=== PATIENT | female | born 1985 | race Two or more races ===

== ENCOUNTER 2023-03-13 19:57 | Emergency (ER) | payer MEDICAID, OTHER ==
[~2023-03-13] VITALS: Ht 165.1 cm; Wt 102.2 kg
[2023-03-13 23:45] LABS: Urine Bacteria MOD /hpf (None Seen); Urine Blood Negative /uL (Negative); Urine Clarity Clear (Clear); Urine Color Colorless (Yellow); Urine Hyaline Cast FEW /lpf (0 - 2); Urine Mucus FEW (None Seen); Urine Protein, UAD Negative (Negative); Urine Specific Gravity 1.009 (1.001-1.035); Urine Urobilinogen Normal (Negative); Urine WBC 6 /hpf (0 - 5); Urine pH 5.5 (5.0-8.0)
[2023-03-14 01:28] VITALS: BP 106/69; PULSE 89; RESP 16; TEMP 98.1; O2SAT 98
[2023-03-14] MEDS ORDERED: ACETAMINOPHEN 325 MG TAB PO ONE (01:30)
== END 2023-03-14 01:33 | disposition home or self-care (01) ==
LOC: ER 19:57
DX: O26.891 Other specified pregnancy related conditions, first trimester (principal); R10.2 Pelvic and perineal pain; S53.401A Unspecified sprain of right elbow, initial encounter; S76.011A Strain of muscle, fascia and tendon of right hip, initial encounter; N83.201 Unspecified ovarian cyst, right side; Z3A.09 9 weeks gestation of pregnancy; W18.09XA Striking against other object with subsequent fall, initial encounter; Y93.89 Activity, other specified; Y92.89 Other specified places as the place of occurrence of the external cause; Y99.8 Other external cause status
CPT/HCPCS: 36415; 76801; 81001; 84702

== ENCOUNTER 2024-01-12 18:59 | Emergency (ER) | payer MEDICAID, OTHER ==
[~2024-01-12] VITALS: Ht 165.1 cm; Wt 103.4 kg
[2024-01-12] MEDS: MORPHINE SULFATE INJ 2 MG/ml SYRG IV ONE (21:00)
[2024-01-12 21:02] LABS: Basophils # (auto) 0 10 ^3/uL (0-0.2); Basophils % (auto) 0.2 % (0.0-2.0); Eosinophils # (auto) 0.1 10 ^3/uL (0-0.8); Hematocrit 47.1 % (36.0-46.0); Hemoglobin 15.8 g/dL (12.2-16.2); Lymphocytes # (auto) 0.7 10 ^3/uL (0.4-5.4); Lymphocytes % (auto) 7.1 % (10.0-50.0); Mean Corpuscular Hgb Conc. 33.6 g/dL (32.0-36.0); Mean Corpuscular Volume 92.5 fL (80.0-100.0); Monocytes # (auto) 0.7 10 ^3/uL (0-1.3); Monocytes % (auto) 7.2 % (0.0-12.0); Neutrophils # (auto) 8.8 10 ^3/uL (1.6-8.6); Neutrophils % (auto) 84.5 % (37.0-80.0); Nucleated Red Blood Cells % 0.1 %; Red Cell Distribution Width 14.9 % (11.8-14.3); White Blood Cell 10.4 10^3/uL (4.4-10.8)
[2024-01-12 21:13] LABS: Urine Bacteria FEW /hpf (None Seen); Urine Blood TRACE /uL (Negative); Urine Clarity Turbid (Clear); Urine Color Yellow (Yellow); Urine Hyaline Cast FEW /lpf (0 - 2); Urine Mucus FEW (None Seen); Urine Protein, UAD 1+ (Negative); Urine Specific Gravity 1.027 (1.001-1.035); Urine Urobilinogen Normal (Negative); Urine WBC 4 /hpf (0 - 5)
[2024-01-12 21:30] LABS: Chloride 106 mmol/L (98-107); Potassium 3.4 mmol/L (3.5-5.1); Sodium 133 mmol/L (136-145)
[2024-01-12 21:31] LABS: Anion Gap 9 (5-15); Carbon Dioxide 18 mmol/L (20-30)
[2024-01-12 21:32] LABS: Calcium 9.6 mg/dL (8.5-10.1)
[2024-01-12 21:36] LABS: BUN/Creatinine Ratio 15.4 (10.0-20.0); Blood Urea Nitrogen 12 mg/dL (9-23); Glucose 102 mg/dL (74-106)
[2024-01-12 21:41] LABS: Albumin 5.1 g/dL (3.2-4.8); Bilirubin, Direct 0.2 mg/dL (<0.3); Bilirubin, Total 0.5 mg/dL (0.2-1.0); Total Protein 8.1 g/dL (5.7-8.2)
[2024-01-12] MEDS ORDERED: METR-344 PO (23:09)
[2024-01-12] MEDS ORDERED: AUG875T PO (23:09)
[2024-01-12] MEDS ORDERED: ZOFR4T PO (23:09)
[2024-01-12] MEDS ORDERED: DICY10CA PO (23:09)
[2024-01-12] MEDS ORDERED: LOPE7.5C PO (23:11)
[2024-01-13 00:15] VITALS: BP 103/69; PULSE 80; RESP 13; TEMP 98.3; O2SAT 96
[2024-01-13] MEDS: POTASSIUM CHL 20 Meq TABLET PO ONE (00:40)
[2024-01-13] MEDS: SODIUM CHLORIDE 0.9% 1,000 ML IV ONE (00:41)
[2024-01-13] MEDS: ONDANSETRON HCL 4 MG/2 ML VIAL IV ONE (00:42)
[2024-01-13] MEDS: cefTRIAXone 1GM/50ML D5W 50 ML IV ONE (00:42)
== END 2024-01-13 01:38 | disposition home or self-care (01) ==
LOC: ER 18:59
DX: N39.0 Urinary tract infection, site not specified (principal); R10.33 Periumbilical pain; R11.2 Nausea with vomiting, unspecified; R19.7 Diarrhea, unspecified; Z98.890 Other specified postprocedural states
CPT/HCPCS: 36415; 74176; 80048; 80076; 81001; 81025; 83690; 85025; 96365; 96375; 99285; J0696; J2405

== ENCOUNTER 2024-10-17 09:43 | Observation (INO) | payer OTHER ==
[~2024-10-17 09:43] MED LIST: AUG875T PO; DICY10CA PO; LOPE7.5C PO; METR-344 PO; ZOFR4T PO
--- NOTE | 2024-10-17 10:50 | DVH ---
BIOPHYSICAL PROFILE HISTORY: decreased movement Comparison Study: None TECHNIQUE: Multiple real-time grayscale sonographic images through the gravid uterus of the fetus wi th duplex Doppler color flow and M-mode spectral analysis FINDINGS: BIOPHYSICAL PROFILE: breathing score: 2 movement score: 2 tone score: 2 Quantitative CALI score: 2 (CALI: 14.2 Cm.) Total score: 8 The cervix is closed and measures 3.2 cm. Single live fetus in cephalic presentation. heart rate 136 beats per minute. Posterior placenta without previa or abruption IMPRESSION: Biophysical profile score: 8
--- NOTE | 2024-10-17 23:40 | DVHDS2 ---
Discharge Summary Date of Admission Oct 17, 2024 at 09:50 Date of Discharge: Oct 17, 2024 Admitting Diagnosis 34 weeks decreased movement Brief Hx & Hospital Course: 34 wk decreased movement Condition at Discharge: Good Final Diagnosis/Problems List 34 weeks decreased movement Discharge Disposition: Home Discharge Instruct/Medications Diet: Regular Activity: No Restrictions, As Tolerated Discharge Statement: "Patient was advised to return to the ER or call 911 if any headaches, diz ziness, shortness of breath, chest pain, abdominal pain, bleeding, fevers, or worsening of medical condition. Patient was counseled about treatment plan, medications, possible side effects, patientverbalized understanding. All questions were answered to the best of my ability. This discharge took greater then 30 minutes in planning, reviewing documentation, counseling the patient, and discussing with other team members." DME: Diagnosis: 34 weeks reasuring fetus ASSESSMENT ASSESSMENT Assessment Visit Coding OBGYN Date of Service: Oct 17, 2024 Billing Provider: YAZ BECKER DO RECREATIONAL PROGRAMS DIRECTOR Common Visit Codes: 57334-UNQ/OBS SAME DATE (LOW), 17170-IVD/OBS SAME DATE (MOD), 51607-ERD/OBS SAME DATE (HIGH) RECREATIONAL PROGRAMS DIRECTOR Procedure Codes: 99721-78- NON-STRESS TEST YAZ BECKER DO Oct 17, 2024 23:40
== END 2024-10-17 11:09 | disposition home or self-care (01) ==
LOC: UNDOADMOB 09:43 → LDRP 09:43 → UNDODISOB 11:09
PROVIDERS: ADMIT Obstetrics & Gynecology; ATTEND Obstetrics & Gynecology
DX: O36.8130 Decreased fetal movements, third trimester, not applicable or unspecified (principal); Z98.890 Other specified postprocedural states; Z79.899 Other long term (current) drug therapy; Z3A.34 34 weeks gestation of pregnancy
CPT/HCPCS: 59025; 76819; 81002; 94760; G0378

== ENCOUNTER 2024-11-21 05:26 | Inpatient (IN) | payer OTHER ==
[~2024-11-21] VITALS: Ht 165.1 cm; Wt 113.4 kg
[2024-11-21] MEDS ORDERED: BUTORPHANOL TARTRATE 2 MG/1 ML VIAL IV PRN ×2 (05:45)
[2024-11-21] MEDS ORDERED: LIDOCAINE 2%HCL (LOCAL ANESTH.) INJ 20ML MDV IJ PRN (05:45)
[2024-11-21] MEDS ORDERED: TERBUTALINE SULFATE 1 MG/ML 1ML VIAL SC PRN (05:45)
--- NOTE | 2024-11-21 05:49 | DVHHP2 ---
OB CC & HPI Date Date of Admission: Nov 21, 2024 Patient Identification: : 8 Para: 4 EDC: November 28, 2024 EGA: 39 Chief Complaints: Reason for admission: active labor History of Present Complaints Active labor, moderate contractions Normal complicated by: - AMA (NIPT and AFP neg, ECHO normal) - GBS unknown (results pending) - Morbid obesity, GDM screen negative. OB History OB History Care: Good Care Ultrasounds: No ultrasounds Obstetrical Complications: None Medical Complications: None Allergies: Coded Allergies: NO KNOWN ALLERGIES (Unverified , 03/13/23) Home Meds Active Scripts Loperamide HCl (Imodium A-D) 2 Mg Cap, 2 MG PO Q6HP PRN, #20 CAP Prov:JOSE MANUEL ZARAGOZA MD 01/12/24 Ondansetron Odt 4MG Tab (ZOFRAN PO) 4 Mg Tb, 4 MG PO TID PRN, #15 TAB ODT TAB-DISSOLVE IN MOUTH, THEN SWALLOW Prov:JOSE MANUEL ZARAGOZA MD 01/12/24 Dicyclomine Hcl (BENTYL CAPSULE) 10 Mg Cp, 2 CAP PO Q6HPRN, #30 CAP 3 Refills Prov:JOSE MANUEL ZARAGOZA MD 01/12/24 Metronidazole (Flagyl) 500 Mg Tab, 500 MG PO TID for 10 Days, #30 TAB Prov:JOSE MANUEL ZARAGOZA MD 01/12/24 Amoxicillin & Pot Clavulanate (AUGMENTIN TABLET) 875 Mg Tb, 875 MG PO BID for 10 Days, #20 TAB Prov:JOSE MANUEL ZARAGOZA MD 01/12/24 Current Medications Current Medications Medications (Trade) Dose Ordered Sig/Nanci Route PRN Reason Start Time Stop Time Status Last Admin Lactated Ringer's 1,000 ml @ 125 mls/hr Q8H IV 11/21/24 05:45 UNV Witch Ana (Tucks) 1 pad PRN PRN TOP PERINEAL AREA DISCOMFORT 11/21/24 05:45 UNV Sodium Lauryl Sulfate (Phisoderm) 240 ml PRN PRN TOP PERINEAL AREA DISCOMFORT 11/21/24 05:45 UNV Benzocaine (Dermoplast) 1 applic PRN PRN TOP PERINEAL AREA DISCOMFORT 11/21/24 05:45 UNV Butorphanol Tartrate (Stadol Injection) 1 mg Q4HPRN PRN IV MODERATE PAIN (4-6 PAIN SCALE) 11/21/24 05:45 UNV Butorphanol Tartrate (Stadol Injection) 2 mg Q4HPRN PRN IV SEVERE PAIN (7-10 PAIN SCALE) 11/21/24 05:45 UNV Lidocaine HCl (Xylocaine) 20 ml ONCE PRN IJ PERINEAL AREA DISCOMFORT 11/21/24 05:45 UNV Terbutaline Sulfate (Brethine Inj) 0.25 mg ONCE PRN SC Uterine tachysystole 11/21/24 05:45 UNV Family & Social History Family/Social History Past Family/Social History: Non contributory Blood Type: O+ Rubella: immune RPR/VDRL: Negative GBS Status: Unknown HBsAG: Negative Review of Systems Constitutional: No symptom reported Ears, Nose, & Throat: No symptom reported Eyes: No symptom reported Pulmonary/Respiratory: No symptom reported Cardiovascular: No symptom reported Gastrointestinal: No symptom reported Genitourinary: No symptom reported Musculoskeletal: No symptom reported Skin: No symptom reported Psychiatric: No symptom reported Endocrine: No symptom reported Hemotologic/Lymphatic: No symptom reported OB Admission Exam Physical Exam Vitals: Afeb VS stable HEENT: NCAT Heart: Rhythm Normal Lungs: Clear Abdomen: Gravid Extremities: Normal Reflexes: Normal Cervical Dilatation: 9cm Effacement: 100% Station: -1 Membranes: Intact Heart Rate: 130's Accelerations: Accelerations Present Decelerations: No Decelerations Short Term Variability: Present Apprentice Machinist Outside Variability: Average (6-25) Contractions on Admission: < 5 Minutes Apart Intensity: Moderate OB Plan Plan Admitting Diagnosis: Term IUP 39 wk, Spont Labor AMA Plan: Expectant Management Other Plan: Admit for labor and delivery Anticipated Informed consent obtained Visit Coding OBGYN Date of Service: Nov 21, 2024 Billing Provider: CLARI GARDNER DO DELIVERY MGR Common Visit Codes: 12554-KNGLWDZ INP/OBS CARE (HIGH) CLARI GARDNER DO Nov 21, 2024 05:49
[2024-11-21] MEDS: WITCH HAZEL-GLYCERIN PAD TOP PRN (06:13)
[2024-11-21] MEDS: PHISODERM TOP SOLN 240ML BTL TOP PRN (06:13)
[2024-11-21] MEDS: DERMOPLAST 60ML BOTTLE TOP PRN (06:14)
[2024-11-21 06:22] LABS: Basophils # (auto) 0 10 ^3/uL (0-0.2); Basophils % (auto) 0.2 % (0.0-2.0); Eosinophils # (auto) 0 10 ^3/uL (0-0.8); Eosinophils % (auto) 0.4 % (0.0-7.0); Hematocrit 37.7 % (36.0-46.0); Hemoglobin 12.5 g/dL (12.2-16.2); Lymphocytes # (auto) 1.6 10 ^3/uL (0.4-5.4); Lymphocytes % (auto) 13.8 % (10.0-50.0); Mean Corpuscular Hgb Conc. 33.2 g/dL (32.0-36.0); Mean Corpuscular Volume 90.3 fL (80.0-100.0); Monocytes # (auto) 0.6 10 ^3/uL (0-1.3); Neutrophils # (auto) 9.1 10 ^3/uL (1.6-8.6); Neutrophils % (auto) 80.6 % (37.0-80.0); Nucleated Red Blood Cells % 0.1 %; Platelet Count (auto) 254 10^3/uL (140-450); Red Blood Cells 4.17 10^6/uL (4.0-5.20); Red Cell Distribution Width 14.4 % (11.8-14.3); White Blood Cell 11.2 10^3/uL (4.4-10.8)
[2024-11-21] MEDS: PENICILLIN G POT 5MIL/D5 50ML 50 ML IV ONE (06:24)
[2024-11-21 06:44] LABS: INR 0.91 (0.9-1.15); Partial Thromboplastin Time 27.9 SEC (24.5-34.5); Prothrombin Time 9.7 sec (9.3-11.8)
[2024-11-21 06:48] LABS: Alanine Aminotransferase 11 U/L (7-40); Albumin 3.9 g/dL (3.2-4.8); Anion Gap 11 (5-15); BUN/Creatinine Ratio 17.5 (10.0-20.0); Bilirubin, Total 0.4 mg/dL (0.2-1.0); Blood Urea Nitrogen 10 mg/dL (9-23); Calcium 9.5 mg/dL (8.7-10.4); Carbon Dioxide 22 mmol/L (20-31); Chloride 104 mmol/L (98-107); Glucose 104 mg/dL (74-106); Potassium 3.9 mmol/L (3.5-5.1); Sodium 137 mmol/L (136-145); Total Protein 6.6 g/dL (5.7-8.2)
[2024-11-21 06:50] LABS: Alkaline Phosphatase 151 U/L (46-116); Aspartate Aminotransferase 12 U/L (13-40)
[2024-11-21] MEDS: LACT. RINGERS/OXYTOCIN 20UNITS 500 ML IV ONE ×2 (07:04→09:02)
--- NOTE | 2024-11-21 07:10 | LDN2 ---
Labor and Delivery Note Date 11/21/24 Age 39 8 Para 5 AB 3 EDC 5-5 EGA 39wks Diagnosis labor Vaginal Delivery: VTX Vacuum Assisted: No Placenta: Spontaneous Sex: Male Apgars 8-9 Nuchal Cord Transected: Yes Amniotic Fluid: Clear Episiotomy: No Extension: No Repaired with na EBL 300ml Labs Blood Bank 11/21/24 05:45: Blood Type O POSITIVE Complications none Conditions stable Comments/Significant Med Bhanu spec exam no cxal lac Visit Coding OBGYN Date of Service: Nov 21, 2024 Billing Provider: ERIC CARY DO JEWEL STRINGER Common Visit Codes: 27644-DUL/OBS SAME DATE (HIGH) JEWEL STRINGER Procedure Codes: 63942-DRQ DELIVERY ONLY ERIC CARY DO Nov 21, 2024 07:10
[2024-11-21 07:35] LABS: Urine Bacteria None Seen /hpf (None Seen)
[2024-11-21] MEDS ORDERED: ONDANSETRON HCL 4 MG/2 ML VIAL IV PRN (08:00)
[2024-11-21 08:03] LABS: Urine Blood Negative /uL (Negative); Urine Clarity Clear (Clear); Urine Color Light-Yellow (Yellow); Urine Mucus FEW (None Seen); Urine Protein, UAD Negative (Negative); Urine Specific Gravity 1.026 (1.001-1.035); Urine Squamous Epithelial Cell FEW /hpf (<5); Urine Urobilinogen Normal (Negative); Urine WBC < 1 /HPF (0-5); Urine pH 5.5 (5.0-9.0)
[2024-11-21 08:14] LABS: Amphetamine Screen, Urine Neg (NEGATIVE); Barbiturate Scree,Urine Neg (NEGATIVE); Opiate Scree,Urine Neg (NEGATIVE); Phencyclidine Screen, Urine Neg (NEGATIVE)
[2024-11-21 08:15] LABS: Benzodiazephine Screen, Urine Neg (NEGATIVE); Cannabinoid Screen, Urine Neg (NEGATIVE); Cocaine Screen, Urine Neg (NEGATIVE)
[2024-11-21] MEDS: METHYLERGONOVINE MALEATE 0.2 MG/ML AMP IM ONE ×2 (09:02→09:50)
[2024-11-21] MEDS: IBUPROFEN 600 MG TAB PO PRN (09:09)
[2024-11-21] MEDS ORDERED: PENICILLIN G POTASSIUM 2,500,000 UNITS in D5W 5% 50 ML IV SCH (10:15)
[2024-11-21 11:30] VITALS: BP 120/56; PULSE 97; RESP 18; TEMP 98.4; O2SAT 97
[2024-11-21] MEDS: ACETAMINOPHEN 325 MG TAB PO PRN (12:30)
[2024-11-21] MEDS: LACTATED RINGER'S 1,000 ML IV SCH (13:45)
[2024-11-21 14:43] VITALS: BP 119/64; PULSE 96; RESP 18; TEMP 99.2; O2SAT 98
[2024-11-21] MEDS ORDERED: miSOPROStol 100 mcg TAB PO ONE (15:52)
[2024-11-21 18:38] VITALS: BP 116/58; PULSE 97; RESP 16; TEMP 97.8; O2SAT 99
[2024-11-21 22:35] VITALS: BP 111/53; PULSE 88; RESP 16; TEMP 98.1; O2SAT 99
[2024-11-22 02:42] VITALS: BP 109/55; PULSE 72; RESP 16; TEMP 97.9; O2SAT 99
--- NOTE | 2024-11-22 06:00 | DVHPN2 ---
Chief Complaints Patient reports: No new complaints, Feels better, Other (Minimal lochia requesting discharge home) Nursing reports: No new complaints, No abdominal pain, No chest pain, No dizziness, No cough Objective Vitals Vital Signs Date Time Temp Pulse Resp B/P (MAP) Pulse Ox O2 Delivery O2 Flow Rate FiO2 11/22/24 02:42 97.9 72 16 109/55 (73) 99 97.9 11/21/24 18:30 Room Air Medications Current Medications Medications (Trade) Dose Ordered Sig/Nanci Route PRN Reason Start Time Stop Time Status Last Admin Acetaminophen (Tylenol Tablet) 650 mg Q4HP PRN PO MILD PAIN (1-3 PAIN SCALE) 11/21/24 08:00 11/22/24 03:44 Ibuprofen (Motrin Tablet) 600 mg Q6HP PRN PO MODERATE PAIN (4-6 PAIN SCALE) 11/21/24 08:00 11/21/24 22:34 Ondansetron HCl (Zofran) 4 mg Q4HP PRN IV NAUSEA / VOMITING 11/21/24 08:00 General: Normal Lungs: Normal Cardiovascular: Normal Abdominal: Normal (12 weeks size firm minimal lochia) Musculoskeletal: Normal Extremities: Normal Skin: Normal Neurological: Normal (Alert awake oriented x3 afebrile vital signs stable) Studies Laboratory Tests 11/21/24 05:45 Test 11/21/24 05:45 Range/Units Serum Glucose 104 74-106 mg/dL Ass/Plan Assessment day 1 stable improved Plan Advanced care discharge home see discharge summary see discharge orders. YAZ BECKER DO Nov 22, 2024 05:59
--- NOTE | 2024-11-22 06:02 | DVHDS2 ---
Discharge Summary Date of Admission Nov 21, 2024 at 05:40 Date of Discharge: Nov 22, 2024 Admitting Diagnosis Labor Labs/Diagnostic Data: Laboratory Results Test 11/21/24 05:45 11/21/24 04:58 White Blood Count 11.2 10^3/uL (4.4-10.8) Red Blood Count 4.17 10^6/uL (4.0-5.20) Hemoglobin 12.5 g/dL (12.2-16.2) Hematocrit 37.7 % (36.0-46.0) Mean Corpuscular Volume 90.3 fL (80.0-100.0) Mean Corpuscular Hemoglobin 30.0 pg (28.0-32.0) Mean Corpuscular Hemoglobin Concent 33.2 g/dL (32.0-36.0) Red Cell Distribution Width 14.4 % (11.8-14.3) Platelet Count 254 10^3/uL (140-450) Mean Platelet Volume 9.9 fL (6.9-10.8) Neutrophils (%) (Auto) 80.6 % (37.0-80.0) Lymphocytes (%) (Auto) 13.8 % (10.0-50.0) Monocytes (%) (Auto) 5.0 % (0.0-12.0) Eosinophils (%) (Auto) 0.4 % (0.0-7.0) Basophils (%) (Auto) 0.2 % (0.0-2.0) Neutrophils # (Auto) 9.1 10 ^3/uL (1.6-8.6) Lymphocytes # (Auto) 1.6 10 ^3/uL (0.4-5.4) Monocytes # (Auto) 0.6 10 ^3/uL (0-1.3) Eosinophils # (Auto) 0 10 ^3/uL (0-0.8) Basophils # (Auto) 0 10 ^3/uL (0-0.2) Nucleated Red Blood Cells 0.1 % Prothrombin Time 9.7 sec (9.3-11.8) Prothrombin Time INR 0.91 (0.9-1.15) Activated Partial Thromboplast Time 27.9 SEC (24.5-34.5) Sodium Level 137 mmol/L (136-145) Potassium Level 3.9 mmol/L (3.5-5.1) Chloride Level 104 mmol/L (98-107) Carbon Dioxide Level 22 mmol/L (20-31) Anion Gap 11 (5-15) Blood Urea Nitrogen 10 mg/dL (9-23) Creatinine 0.57 mg/dL (0.550-1.02) Glomerular Filtration Rate Calc 120 mL/min (>90) BUN/Creatinine Ratio 17.5 (10.0-20.0) Serum Glucose 104 mg/dL (74-106) Calcium Level 9.5 mg/dL (8.7-10.4) Total Bilirubin 0.4 mg/dL (0.2-1.0) Aspartate Amino Transferase (AST) 12 U/L (13-40) Alanine Aminotransferase (ALT) 11 U/L (7-40) Alkaline Phosphatase 151 U/L (46-116) Total Protein 6.6 g/dL (5.7-8.2) Albumin 3.9 g/dL (3.2-4.8) Treponema pallidum Antibody Non-reactive (Negative) Hepatitis C Antibody Negative (Negative) Urine Color Light-yellow (Yellow) Urine Clarity Clear (Clear) Urine pH 5.5 (5.0-9.0) Urine Specific [place] 1.026 (1.001-1.035) Urine Protein Negative (Negative) Urine Ketones Negative (Negative) Urine Blood Negative /uL (Negative) Urine Nitrite Negative (Negative) Urine Bilirubin Negative (Negative) Urine Urobilinogen Normal mg/dL (Negative) Urine Leukocyte Esterase Negative /uL (Negative) Urine RBC 1 /hpf (0 - 4) Urine Microscopic WBC < 1 /HPF (0-5) Urine Squamous Epithelial Cells Few /hpf (<5) Urine Bacteria None seen /hpf (None Seen) Urine Mucus Few (None Seen) Urine Glucose Normal mg/dL (Normal) Urine Opiates Screen Neg (NEGATIVE) Urine Fentanyl Screen Neg (NEGATIVE) Urine Barbiturates Screen Neg (NEGATIVE) Urine Phencyclidine Screen Neg (NEGATIVE) Urine Amphetamines Screen Neg (NEGATIVE) Urine Benzodiazepines Screen Neg (NEGATIVE) Urine Cocaine Screen Neg (NEGATIVE) Urine Cannabinoids Screen Neg (NEGATIVE) Other Laboratory Tests 11/21/24 05:45 Brief Hx & Hospital Course: Patient arrived to and and delivered rapidly. Operations or Procedures None Condition at Discharge: Good Final Diagnosis/Problems List Status post stable improved Discharge Disposition: Home Discharge Instruct/Medications Diet: Regular Activity: Light activity (Pelvic rest 6 weeks) Follow Up/Referral: Follow up primary 2-3 weeks PA are p.r.n. Discharge Statement: "Patient was advised to return to the ER or call 911 if any headaches, dizziness, shortness of breath, chest pain, abdominal pain, bleeding, fevers, or worsening of medical condition. Patient was counseled about treatment plan, medications, possible side effects, patientverbalized understanding. All questions were answered to the best of my ability. This discharge took greater then 30 minutes in planning, reviewing documentation, counseling the patient, and discussing with other team members." ASSESSMENT ASSESSMENT Assessment Visit Coding OBGYN Date of Service: Nov 21, 2024 Billing Provider: YAZ BECKER DO DESTINATION SPECIALIST Common Visit Codes: 45220-OOK/OBS SAME DATE (MOD), 12100-MDC/OBS SAME DATE (HIGH) DESTINATION SPECIALIST Consultation Codes: 32296-T/U INPATIENT CONSULT (HIGH) DESTINATION SPECIALIST Procedure Codes: 25882-XYR DEL INCLUDING , 05353-ZONXPN W/C-SEC TOT OB CA YAZ BECKER DO Nov 22, 2024 06:02
[2024-11-22 07:00] VITALS: BP 106/58; PULSE 74; RESP 16; TEMP 97.9; O2SAT 97
[2024-11-22 10:15] VITALS: BP 120/64; PULSE 78; RESP 16; TEMP 98.1; O2SAT 98
== END 2024-11-22 10:15 | disposition home or self-care (01) | DRG 560 ==
LOC: LDRP 05:26 → OBSVTOIN 05:40 → LDRP 11-22 08:32
PROVIDERS: ADMIT Obstetrics & Gynecology; ATTEND Obstetrics & Gynecology
PROC: 10E0XZZ Delivery of Products of Conception, External Approach (ICD-10-PCS; principal; 2024-11-21)
DX: O69.81X0 Labor and delivery complicated by cord around neck, without compression, not applicable or unspecified (principal); Z37.0 Single live birth; E66.01 Morbid (severe) obesity due to excess calories; Z3A.39 39 weeks gestation of pregnancy; O99.214 Obesity complicating childbirth
CPT/HCPCS: 36415; 59409; 80053; 80307; 81001; 81002; 85025; 85610; 85730; 86780; 86803; 86850; 86900; 86901; 94760; 96361; 96372; G0378; J2540; J2590; J7060